=== PATIENT | male | born 1965 | race Caucasian/White ===

== ENCOUNTER 2016-04-07 18:02 | Inpatient (IN) | payer OTHER ==
[~2016-04-07] VITALS: Ht 172.7 cm; Wt 117.0 kg
[2016-04-07] MEDS ORDERED: SODIUM CHLORIDE 0.9% 1000ML 1,000 ML IV STA (20:14)
[2016-04-07] MEDS ORDERED: OPTIRAY 320 IV PRN (20:30)
[2016-04-07 20:54] LABS: BASO % 0.7 %; BASO ABS # 0.06 K/uL (0-0.2); COMPLETE YES; EOS % 1.7 %; HEMATOCRIT 46.1 % (42-52); IG% 0.3 %; LYMPH % 36.3 %; MEAN CELL VOLUME 87.3 fL (80-100); MEAN CORPUSCULAR HEMOGLOBIN 30.5 pg (25-34); MEAN CORPUSCULAR HGB CONC 34.9 g/dl (32-36); MEAN PLATELET VOLUME 10.8 fL (7.4-10.4); MONO % 9.9 %; NEUT % 51.1 %; PLATELET COUNT 216 K/uL (130-400); RED BLOOD COUNT 5.28 M/uL (4.7-6.1); WHITE BLOOD COUNT 9.09 K/uL (4.8-10.8)
[2016-04-07 21:12] LABS: CALCIUM 9.1 mg/dl (8.5-10.1); POTASSIUM 3.9 mmol/L (3.5-5.1)
[2016-04-07] MEDS ORDERED: ASPI81TA28 PO (21:37)
[2016-04-07] MEDS ORDERED: OMEP20.64 PO (21:37)
[2016-04-07] MEDS ORDERED: COEN100C7 PO (21:37)
[2016-04-07] MEDS ORDERED: LISI-729 PO (21:37)
[2016-04-07] MEDS ORDERED: CLC100X PO (21:37)
[2016-04-07] MEDS ORDERED: MULT-506 PO (21:37)
[2016-04-07] MEDS ORDERED: POLY335019 PO (21:37)
--- NOTE | 2016-04-07 21:45 | DIAGNOSTIC IMAGING REPORT ---
ABDOMEN AND PELVIS CT WITH IV CONTRAST CT DOSE: 1188.39 mGy.cm HISTORY: Pain abd pain ll. TECHNIQUE: Multiaxial CT images of the abdomen and pelvis were performed following the use of intravenous contrast. COMPARISON STUDY: None. FINDINGS: Lung bases are clear. Liver spleen and pancreas are unremarkable. Kidneys negative for hydronephrosis or calcification. Intra-abdominal bowel pattern is nonobstructive.] Evaluation of the pelvis demonstrates wall thickening associated with several reticular change of the proximal to mid sigmoid. This consistent with chronic proximal sigmoid diverticulosis. No well-defined evidence for acute diverticulitis present. No evidence for bowel obstructive change. Note is made of gallstones within the gallbladder lumen. IMPRESSION: 1. Chronic proximal to mid sigmoid diverticulosis. 2. No evidence for acute diverticulitis. 3. Gallstones. Electronically signed by: Ted Curtis M.D. 04/07/2016 9:43 PM Dictated Date/Time: 04/07/2016 9:40 PM
[2016-04-07] MEDS ORDERED: PANTOprazole INJ 80 MG in DEXTROSE 5% 100ML IV STA (22:20)
[2016-04-07] MEDS ORDERED: PANTOprazole INJ 40 MG in DEXTROSE 5% 100ML IV SCH (22:30)
[2016-04-07] MEDS ORDERED: DiphenhydrAMINE HCL 50 MG/ML VIAL IV PRN (23:00)
[2016-04-07] MEDS ORDERED: LORAZEPAM 2 MG/ML 1 ML VIAL IV PRN (23:00)
[2016-04-07] MEDS ORDERED: ZOLPIDEM TARTRATE 5 MG TAB PO PRN (23:00)
[2016-04-07] MEDS ORDERED: MoRPHine SULFATE 4 MG/ML 1 ML CARP\\VIAL IV PRN (23:00)
[2016-04-07] MEDS ORDERED: ONDANSETRON INJ 2 MG/ML 2 ML VIAL IV PRN (23:00)
[2016-04-07] MEDS ORDERED: PROMETHAZINE HCL INJ 12.5 MG in SODIUM CHLORIDE 0.9% 50ML 50 ML IV PRN (23:00)
[2016-04-07] MEDS ORDERED: MoRPHine SULFATE 2 MG/ML CARP IV PRN (23:00)
--- NOTE | 2016-04-07 23:00 | EMERGENCY ROOM VISIT NOTE ---
History Report prepared by Dayne: Sandra Fan Under the Supervision of: Dr. Ravi Coombs D.O. First contact with patient: 20:02 Chief Complaint: RECTAL BLEEDING Stated Complaint: DIVERTICULAR BLEEDING Nursing Triage Summary: Patient reports having diverticulitis around 2 years ago and has occasionally had bleeding in stools but "nothing like this before", Patient also reports "my belly pain is nothing like my divertic". History of Present Illness The patient is a 50 year old male who presents to the Emergency Room with complaints of intermittent rectal bleeding starting about 2 days ago. He has been passing dark red blood and blood clots. He also complains of diarrhea. He has had 2 bowel movements in the last 24 hours. He had right lower quadrant abdominal pain yesterday but denies any abdominal pain today. He reports a loss of appetite. Pt denies headache, change in vision, fevers, chest pain, shortness of breath, nausea, vomiting, abdominal pain, pain with urination, and melena. He takes baby aspirin every day. He does not take Motrin or Aleve on a daily basis. The patient denies history of gastritis or cholecystectomy. He does have a history of appendectomy. He has a history of colonoscopy occurring 3 years ago which showed diverticulosis but no polyps. Source of History: patient Onset: about 2 days ago Position: other (global) Quality: other (rectal bleeding) Timing: intermittent Associated Symptoms: + abdominal pain (resolved), + diarrhea, No SOB, No chest pain, No fevers, No nausea, No vomiting Review of Systems See HPI for pertinent positives & negatives. A total of 10 systems reviewed and were otherwise negative. Past Medical & Surgical Medical Problems: (1) Hematochezia Surgical Problems: (1) H/O colonoscopy (2) History of appendectomy Family History Patient reports no known family medical history. Social History Smoking Status: Never Smoker Marital Status: Occupation Status: employed Current/Historical Medications Scheduled Aspirin (Aspirin Ec), 81 MG PO DAILY Coenzyme Q10 (Ubidecarenone) (Coq10), 100 MG PO DAILY Docusate Sodium (Docusate Sodium), 100 MG PO DAILY Lisinopril (Prinivil), 5 MG PO DAILY Multivitamin (Multivitamin), 1 TAB PO DAILY Omeprazole Magnesium (Cvs Omeprazole Magnesium), 20.6 MG PO DAILY Polyethylene Glycol 3350 (Miralax), 17 GM PO DAILY Allergies Coded Allergies: No Known Allergies (Unverified , 04/07/16) Physical Exam Vital Signs Date Time Temp Pulse Resp B/P Pulse Ox O2 Delivery O2 Flow Rate FiO2 04/07/16 21:42 78 18 157/86 100 Room Air 04/07/16 20:45 80 18 134/90 97 Room Air 04/07/16 18:26 36.8 85 18 123/85 97 Room Air Physical Exam GENERAL: Sitting on edge of bed, alert, well appearing, well nourished, no distress, non-toxic EYE EXAM: normal conjunctiva OROPHARYNX: no exudate, no erythema, lips, buccal mucosa, and tongue normal and mucous membranes are moist NECK: supple, no nuchal rigidity, no adenopathy, non-tender LUNGS: Clear to auscultation. Normal chest wall mechanics HEART: no murmurs, S1 normal and S2 normal ABDOMEN: abdomen soft, non-tender, normo-active bowel sounds, no masses, no rebound or guarding. BACK: Back is symmetrical on inspection and there is no deformity, no midline tenderness, no CVA tenderness. SKIN: no rashes and no bruising UPPER EXTREMITIES: upper extremities are grossly normal. LOWER EXTREMITIES: No pitting edema. RECTAL: Dark/bright red blood in rectum, external hemorrhoids present but not bleeding. NEURO EXAM: Normal sensorium, cranial nerves II-XII grossly intact, normal speech, no gross weakness of arms, no gross weakness of legs. Medical Decision & Procedures ER Provider Diagnostic Interpretation: CT:Per my review, radiologist interpretation. ABDOMEN AND PELVIS CT WITH IV CONTRAST CT DOSE: 1188.39 mGy.cm HISTORY: Pain abd pain ll. TECHNIQUE: Multiaxial CT images of the abdomen and pelvis were performed following the use of intravenous contrast. COMPARISON STUDY: None. FINDINGS: Lung bases are clear. Liver spleen and pancreas are unremarkable. Kidneys negative for hydronephrosis or calcification. Intra-abdominal bowel pattern is nonobstructive.] Evaluation of the pelvis demonstrates wall thickening associated with several reticular change of the proximal to mid sigmoid. This consistent with chronic proximal sigmoid diverticulosis. No well-defined evidence for acute diverticulitis present. No evidence for bowel obstructive change. Note is made of gallstones within the gallbladder lumen. IMPRESSION: 1. Chronic proximal to mid sigmoid diverticulosis. 2. No evidence for acute diverticulitis. 3. Gallstones. Electronically signed by: Ted Curtis M.D. 04/07/2016 9:43 PM Dictated Date/Time: 04/07/2016 9:40 PM Laboratory Results 04/07/16 20:40 Red Blood Count 5.28, Mean Corpuscular Volume 87.3, Mean Corpuscular Hemoglobin 30.5, Mean Corpuscular Hemoglobin Concent 34.9, Mean Platelet Volume 10.8, Neutrophils (%) (Auto) 51.1, Lymphocytes (%) (Auto) 36.3, Monocytes (%) (Auto) 9.9, Eosinophils (%) (Auto) 1.7, Basophils (%) (Auto) 0.7, Neutrophils # (Auto) 4.65, Lymphocytes # (Auto) 3.30, Monocytes # (Auto) 0.90, Eosinophils # (Auto) 0.15, Basophils # (Auto) 0.06 04/07/16 20:40 Test 04/07/16 20:40 White Blood Count 9.09 K/uL (4.8-10.8) Red Blood Count 5.28 M/uL (4.7-6.1) Hemoglobin 16.1 g/dL (14.0-18.0) Hematocrit 46.1 % (42-52) Mean Corpuscular Volume 87.3 fL (80-100) Mean Corpuscular Hemoglobin 30.5 pg (25-34) Mean Corpuscular Hemoglobin Concent 34.9 g/dl (32-36) Platelet Count 216 K/uL (130-400) Mean Platelet Volume 10.8 fL (7.4-10.4) Neutrophils (%) (Auto) 51.1 % Lymphocytes (%) (Auto) 36.3 % Monocytes (%) (Auto) 9.9 % Eosinophils (%) (Auto) 1.7 % Basophils (%) (Auto) 0.7 % Neutrophils # (Auto) 4.65 K/uL (1.4-6.5) Lymphocytes # (Auto) 3.30 K/uL (1.2-3.4) Monocytes # (Auto) 0.90 K/uL (0.11-0.59) Eosinophils # (Auto) 0.15 K/uL (0-0.5) Basophils # (Auto) 0.06 K/uL (0-0.2) RDW Standard Deviation 42.5 fL (36.4-46.3) RDW Coefficient of Variation 13.4 % (11.5-14.5) Immature Granulocyte % (Auto) 0.3 % Immature Granulocyte # (Auto) 0.03 K/uL (0.00-0.02) Anion Gap 11.0 mmol/L (3-11) Est Creatinine Clear Calc Drug Dose 107.3 ml/min Estimated GFR () 99.8 Estimated GFR (Non- 86.2 BUN/Creatinine Ratio 9.0 (10-20) Calcium Level 9.1 mg/dl (8.5-10.1) Total Bilirubin 0.8 mg/dl (0.2-1) Direct Bilirubin 0.2 mg/dl (0-0.2) Aspartate Amino Transf (AST/SGOT) 19 U/L (15-37) Alanine Aminotransferase (ALT/SGPT) 33 U/L (12-78) Alkaline Phosphatase 76 U/L (45-117) Total Protein 8.1 gm/dl (6.4-8.2) Albumin 4.0 gm/dl (3.4-5.0) Lipase 106 U/L (73-393) Laboratory results per my review. Medications Administered Medications (Trade) Dose Ordered Sig/Celi Route Start Time Stop Time Status Last Admin Dose Admin Sodium Chloride (Nss 1000ml) 1,000 ml @ 999 mls/hr Q1H1M STAT IV 04/07/16 20:14 04/07/16 21:14 DC 04/07/16 21:03 999 MLS/HR ED Course ED COURSE: Vital signs were reviewed and showed normal. The patients medical record was reviewed The above diagnostic studies were performed and reviewed. ED treatments and interventions as stated above. 2001: The patient was evaluated in room C12B. A complete history and physical examination was performed. 2013: Sodium Chloride 1000 ml @ 999 mls/hr IV 2201: Upon reevaluation, the patient is resting comfortably.I discussed my findings with the patient and he understands and agrees with the treatment plan. Based on the patients age, coexisting illnesses, exam and lab findings the decision to treat as an inpatient was made. The patient remained stable while under my care. The patient will be evaluated for further management. 2215: Pantoprazole Sodium 1 ea IV 2220: I discussed the patient's case with Dr. Arias, from [facility]. Medical Decision Differential diagnosis: Etiologies such as diverticulosis, AVM, coagulopathy, colitis, inflammatory bowel disease, malignancy, Candace-Buchanan tear, esophagitis, peptic ulcer disease , variceal bleed, gastritis, epistaxis, fissure, hemorrhoids, as well as others were entertained. Patient is a 50-year-old male who presents the ER for dark blood clots which is passing per rectum for the past 2 days. He takes no blood thinners with exception of aspirin. He has no abdominal pain. No lightheadedness or dizziness. Colonoscopy was 2 years ago. While in the started having bright red blood per rectum. Hemoglobin stable. Vitals are stable. Rectal showed an external hemorrhoid but no active bleeding from this. Patient and family were updated at bedside. He was given a Protonix drip and bolus as it was initially dark blood clots which I favored was upper GI in nature but with the bright red blood I favor this is likely lower as his vitals remained stable. He was admitted to internal medicine for a further workup. Consults Time Called: 2204 Consulting Physician: Dr. Arias, from [facility] Returned Call: 2220 I discussed the patient's case with Dr. Arias, from [facility]. Impression Primary Impression: GI bleed Scribe Attestation The scribe's documentation has been prepared under my direction and personally reviewed by me in its entirety. I confirm that the note above accurately reflects all work, treatment, procedures, and medical decision making performed by me. Departure Information Dispostion Being Evaluated By Hospitalist Referrals Krystal Cabrera D.O. (PCP) Patient Instructions My [facility] Problem Qualifiers Primary Impression: GI bleed GI bleed type/associated pathology: unspecified gastrointestinal hemorrhage type Qualified Codes: K92.2 - Gastrointestinal hemorrhage, unspecified
[2016-04-07 23:11] LABS: HEMATOCRIT 42.9 % (42-52)
--- NOTE | 2016-04-08 02:30 | History and Physical ---
History & Physical Date & Time of Service: Apr 08, 2016 at 02:19 Chief Complaint: Diverticular Bleeding Primary Care Physician: Krystal Cabrera D.O. 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 However, this time, the bleeding was initially that of large clots, then followed by bright red blood. His only pain is that of rectal area pain. He did a few days ago have cabbage and coleslaw, both foods and is not supposed to have, and attributes the more aggressive bleeding to this food intake. He takes a baby aspirin daily due to history of a previous [place] and coronary artery stent placed in 2007. He's had no chest pain or shortness of breath with the current blood loss. Past Medical/Surgical History Surgical Problems: (1) H/O colonoscopy Status: Resolved (2) History of appendectomy Status: Resolved Family History Patient reports no known family medical history. Social History Smoking Status: Never Smoker Marital Status: Occupational Status: employed Multi-Drug Resistant Organisms History of MDRO: No Allergies Coded Allergies: No Known Allergies (Unverified , 04/07/16) Home Medications Scheduled Aspirin (Aspirin Ec), 81 MG PO DAILY Coenzyme Q10 (Ubidecarenone) (Coq10), 100 MG PO DAILY Docusate Sodium (Docusate Sodium), 100 MG PO DAILY Lisinopril (Prinivil), 5 MG PO DAILY Multivitamin (Multivitamin), 1 TAB PO DAILY Omeprazole Magnesium (Cvs Omeprazole Magnesium), 20.6 MG PO DAILY Polyethylene Glycol 3350 (Miralax), 17 GM PO DAILY Review of Systems The patient denies chest pain, palpitations, shortness of breath, cough, lower extremity swelling, vision change, hearing change, sore throat, fevers, chills, sweats, weight change, fatigue, nausea, vomiting, abdominal pain, pelvic pain, blood in urine, dysuria, urinary frequency or urgency, lightheadedness, dizziness, headache, memory loss, rash, imbalance, focal or generalized weakness , numbness or tingling in arms or legs, arthralgias or myalgias, back or neck pain, night sweats, or allergy symptoms. The review of systems is otherwise negative other than for that already noted above, and at least 10 systems have been reviewed. Physical Exam Vital Signs Date Time Temp Pulse Resp B/P Pulse Ox O2 Delivery O2 Flow Rate FiO2 04/08/16 00:01 80 18 133/72 99 04/07/16 23:11 67 18 127/84 99 Room Air 04/07/16 21:42 78 18 157/86 100 Room Air 04/07/16 20:45 80 18 134/90 97 Room Air 04/07/16 18:26 36.8 85 18 123/85 97 Room Air The patient is awake, well-developed and adequately nourished, alert and oriented 3, normocephalic and atraumatic, lying in bed and in no acute distress. HEENT--PERRL, EOMI, mucous membranes and oropharynx dry. Neck--supple, no JVD or bruits, thyroid normal, trachea midline, no adenopathy. Heart--normal S1 and S2, no extra beats, no murmurs, rubs or gallops. Lungs--clear bilaterally with good air movement, no respiratory distress, no accessory muscle use. Abdomen--normal bowel sounds and soft, nontender and nondistended, no hernias or masses, no organomegaly. Extremities--no cyanosis, clubbing or edema. There are good distal pulses b/l. Dermatologic--normal skin turgor, normal color, warm and dry, no abnormal lymph nodes, no rash. Neurologic--cranial nerves II through XII grossly intact, motor and sensory examination normal. Rheumatologic--normal range of motion, nontender, muscles and joints. Rectal exam--per ED with gross red blood. Psychiatric--normal affect. Diagnostics Laboratory Results Results Past 24 Hours Test 04/07/16 20:40 04/07/16 23:00 Range/Units White Blood Count 9.09 4.8-10.8 K/uL Red Blood Count 5.28 4.7-6.1 M/uL Hemoglobin 16.1 14.6 14.0-18.0 g/dL Hematocrit 46.1 42.9 42-52 % Mean Corpuscular Volume 87.3 80-100 fL Mean Corpuscular Hemoglobin 30.5 25-34 pg Mean Corpuscular Hemoglobin Concent 34.9 32-36 g/dl Platelet Count 216 130-400 K/uL Mean Platelet Volume 10.8 7.4-10.4 fL Neutrophils (%) (Auto) 51.1 % Lymphocytes (%) (Auto) 36.3 % Monocytes (%) (Auto) 9.9 % Eosinophils (%) (Auto) 1.7 % Basophils (%) (Auto) 0.7 % Neutrophils # (Auto) 4.65 1.4-6.5 K/uL Lymphocytes # (Auto) 3.30 1.2-3.4 K/uL Monocytes # (Auto) 0.90 0.11-0.59 K/uL Eosinophils # (Auto) 0.15 0-0.5 K/uL Basophils # (Auto) 0.06 0-0.2 K/uL RDW Standard Deviation 42.5 36.4-46.3 fL RDW Coefficient of Variation 13.4 11.5-14.5 % Immature Granulocyte % (Auto) 0.3 % Immature Granulocyte # (Auto) 0.03 0.00-0.02 K/uL Sodium Level 140 136-145 mmol/L Potassium Level 3.9 3.5-5.1 mmol/L Chloride Level 104 98-107 mmol/L Carbon Dioxide Level 25 21-32 mmol/L Anion Gap 11.0 3-11 mmol/L Blood Urea Nitrogen 9 7-18 mg/dl Creatinine 1.00 0.60-1.40 mg/dl Est Creatinine Clear Calc Drug Dose 107.3 ml/min Estimated GFR () 99.8 Estimated GFR (Non- 86.2 BUN/Creatinine Ratio 9.0 10-20 Random Glucose 91 70-99 mg/dl Calcium Level 9.1 8.5-10.1 mg/dl Total Bilirubin 0.8 0.2-1 mg/dl Direct Bilirubin 0.2 0-0.2 mg/dl Aspartate Amino Transf (AST/SGOT) 19 15-37 U/L Alanine Aminotransferase (ALT/SGPT) 33 12-78 U/L Alkaline Phosphatase 76 45-117 U/L Total Protein 8.1 6.4-8.2 gm/dl Albumin 4.0 3.4-5.0 gm/dl Lipase 106 73-393 U/L Diagnostic Radiology Patient Name: FIONA ALVARENGA Unit Number: [id number] Dictated: 04/07/162139 Transcribed: 04/07/162139 MS Printed Date/Time: [~ rep prt dt]/[~ rep prt tm] [~ rep ct labl] - [~ rep ct ivnm] [facility] [place] [place] [address] Dictated: 04/07/162139 Transcribed: 04/07/162139 MS Printed Date/Time: [~ rep prt dt]/[~ rep prt tm] [~ rep ct labl] - [~ rep ct ivnm] [~ rep ct add3]] ABDOMEN AND PELVIS CT WITH IV CONTRAST CT DOSE: 1188.39 mGy.cm HISTORY: Pain abd pain ll. TECHNIQUE: Multiaxial CT images of the abdomen and pelvis were performed following the use of intravenous contrast. COMPARISON STUDY: None. FINDINGS: Lung bases are clear. Liver spleen and pancreas are unremarkable. Kidneys negative for hydronephrosis or calcification. Intra-abdominal bowel pattern is nonobstructive.] Evaluation of the pelvis demonstrates wall thickening associated with several reticular change of the proximal to mid sigmoid. This consistent with chronic proximal sigmoid diverticulosis. No well-defined evidence for acute diverticulitis present. No evidence for bowel obstructive change. Note is made of gallstones within the gallbladder lumen. IMPRESSION: 1. Chronic proximal to mid sigmoid diverticulosis. 2. No evidence for acute diverticulitis. 3. Gallstones. Electronically signed by: Ted Curtis M.D. 04/07/2016 9:43 PM Dictated Date/Time: 04/07/2016 9:40 PM The status of this report is Signed. Draft = Not yet reviewed or approved by Radiologist. Signed = Reviewed and approved by Radiologist. <AttendingPhy></AttendingPhy> <FamilyPhy>Eliz Cabrerang D.O.</FamilyPhy> < PrimaryPhy>Wirtsudeep, Krystal D.O.</PrimaryPhy> <UnitNumber>[id number]</UnitNumber> <VisitNumber>[id number]</VisitNumber> <PatientName>FIONA ALVARENGA</ PatientName> <DateOfBirth>1965</DateOfBirth> <Location>[facility]</Location> < ServiceDate>04/07/16</ServiceDate> <MNE>ESINDI</MNE> <OrderingPhy>Ravi Coombs DO</OrderingPhy> <OrderingPhyMNE>f rep ord dr blount</OrderingPhyMNE> < DictatingPhyMNE>f rep dict dr blount</DictatingPhyMNE> <CCListMNE>f rep ct mne</ CCListMNE> <AdmittingPhyMNE>f pt admit dr blount</AdmittingPhyMNE> <AttendingPhyMNE >f pt attend dr blount</AttendingPhyMNE> <ConsultingPhyMNE>f pt consult dr blount</ConsultingPhyMNE> <FamilyPhyMNE>f pt fam dr blount</FamilyPhyMNE> <OtherPhyMNE>f pt other dr blount</OtherPhyMNE> < PrimaryPhyMNE>f pt prim care dr blount</PrimaryPhyMNE> <ReferringPhyMNE>f pt referring dr blount</ReferringPhyMNE> EKG EKG is ordered and pending at this time. Impression Assessment and Plan Hematochezia--the patient will be admitted to the medical floor for frequent H/H 's at 6 hours intervals. He'll be made nothing by mouth, and will have a consult with gastroenterology in the a.m. He reportedly had a colonoscopy about 3 years ago, from a physician in [place] who is since retired, and was told he had diverticulosis and hemorrhoids. He'll be placed on NSS with KCl 20 mEq at 100 mils per hour. He has been started on a Protonix bolus and then drip , and this will be continued during admission. Hold aspirin 81 mg by mouth daily. Hypertension--hold lisinopril 5 mg by mouth daily. Level of Care Med/Surg Advanced Directives Existing Advance Directive: No Existing Living Will: No Existing Power of School Business Manager: No Resuscitation Status FULL RESUSCITATION VTE Prophylaxis VTE Risk Assessment Done? Y/N: Yes Risk Level: Low Given or contraindicated: SCD's Social Service Consult None Apply
[2016-04-08] MEDS ORDERED: NSS + 20MEQ KCL 1000ML 1,000 ML IV SCH (02:45)
[2016-04-08] MEDS ORDERED: LORAZEPAM INJ 0.5 MG in SYRINGE 0.75 ML IV PRN (02:45)
[2016-04-08] MEDS: PANTOprazole INJ 40 MG in DEXTROSE 5% 100ML IV SCH ×2 (03:36→07:57)
[2016-04-08 04:07] VITALS: BP 126/87; PULSE 71; TEMP 36.8; O2SAT 98; Ht 172.7 cm; Wt 117.0 kg
[2016-04-08 05:08] LABS: BASO % 0.7 %; BASO ABS # 0.06 K/uL (0-0.2); COMPLETE YES; EOS % 2.9 %; HEMATOCRIT 43.4 % (42-52); IG% 0.2 %; LYMPH % 43.8 %; LYMPH ABS # 3.81 K/uL (1.2-3.4); MEAN CELL VOLUME 89.3 fL (80-100); MEAN CORPUSCULAR HEMOGLOBIN 30.5 pg (25-34); MEAN CORPUSCULAR HGB CONC 34.1 g/dl (32-36); MEAN PLATELET VOLUME 11.3 fL (7.4-10.4); MONO % 8.7 %; NEUT % 43.7 %; PLATELET COUNT 201 K/uL (130-400); RED BLOOD COUNT 4.86 M/uL (4.7-6.1)
[2016-04-08 05:28] LABS: BUN/CREATININE RATIO 7.5 (10-20); CALCIUM 8.5 mg/dl (8.5-10.1); CREATININE 0.98 mg/dl (0.60-1.40); MAGNESIUM 1.8 mg/dl (1.8-2.4); POTASSIUM 3.7 mmol/L (3.5-5.1)
[2016-04-08 07:30] VITALS: BP 125/71; PULSE 89; TEMP 36.6; O2SAT 98
--- NOTE | 2016-04-08 10:00 | Gastrointestinal Consultation ---
Gastrointestinal Consultation Date of Consultation: Apr 08, 2016 Attending Physician: Dr. Arias Consulting Physician: Shalini Diaz PA-C Reason for Consultation: Hematochezia History of Present Illness Patient is a 50 year old male with a past medical history of diverticulosis, hyperlipidemia, & hemorrhoids who presented to the ER with complaints of hematochezia. The patient reports he had experienced 2 days of bright red blood per rectum. He reports he noticed some clotting which concerned him and prompted him to seek evaluation. He reports that he had a colonoscopy 2-3 years ago for screening purposes. This was performed in [place]. He reports he was told he had diverticulosis & hemorrhoids. He reports he was instructed to take Metamucil daily. 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 He reports he eats a poor diet due to his occupation. He reports he gets very little fiber. He denies further bleeding since arrival to the hospital. He denies other associated symptoms including abdominal pain, constipation, diarrhea, reflux, heartburn, nausea, or vomiting. He reports he takes a baby aspirin daily. He denies any use of NSAIDs. He reports a family history of diverticulosis. He denies family history of GI malignancy or IBD. He would like to return home and follow-up with his primary care provider if there is no emergent issue at present. H/H 14.8/43.4 at present. BUN/Cr unremarkable. BP 125/71. CT unremarkable for acute diverticulitis. He has no further complaints. Past Medical/Surgical History Medical Problems: (1) GI bleed Status: Acute Past Medical History: Diverticulosis, hyperlipidemia, hemorrhoids Past Surgical History: Colonoscopy Family History Patient reports no known family medical history. Social History Smoking Status: Current Some Day Smoker Marital Status: Occupation Status: employed Allergies Coded Allergies: No Known Allergies (Unverified , 04/07/16) Current Medications Home Meds and Scripts Medications Dose Route/Sig Max Daily Dose Days Date Category Miralax (Polyethylene Glycol 3350) 1 17 Gm PO DAILY 04/07/16 Reported Multivitamin (Multivitamins) Tab 1 Tab PO DAILY 04/07/16 Reported [facility] Omeprazole Magnesium (Omeprazole Magnesium) 20.6 Mg Cap 20.6 Mg PO DAILY 04/07/16 Reported Coq10 (Coenzyme Q10 (Ubidecarenone)) 100 Mg Cap 100 Mg PO DAILY 04/07/16 Reported Aspirin Ec (Aspirin) 81 Mg Tab 81 Mg PO DAILY 04/07/16 Reported Docusate Sodium 100 Mg Cap 100 Mg PO DAILY 04/07/16 Reported Prinivil (Lisinopril) 5 Mg Tab 5 Mg PO DAILY 04/07/16 Reported Review of Systems Constitutional: No chills, No fever Eyes: No problem reported Respiratory: No cough Abdomen: + GI bleeding (resolved), No constipation, No diarrhea, No nausea, No pain, No vomiting Musculoskeletal: No joint pain Neuro: No problem reported Heme: No problem reported Endo: No problem reported Skin: No problem reported Physical Exam Date Time Temp Pulse Resp B/P Pulse Ox O2 Delivery O2 Flow Rate FiO2 04/08/16 07:30 36.6 89 22 125/71 98 Room Air 04/08/16 04:07 36.8 71 20 126/87 98 Room Air 04/08/16 00:01 80 18 133/72 99 04/07/16 23:11 67 18 127/84 99 Room Air 04/07/16 21:42 78 18 157/86 100 Room Air 04/07/16 20:45 80 18 134/90 97 Room Air 04/07/16 18:26 36.8 85 18 123/85 97 Room Air General Appearance: WD/WN, no apparent distress Eyes: normal inspection, PERRL ENT: hearing grossly normal Respiratory/Chest: lungs clear, normal breath sounds Cardiovascular: regular rate, rhythm Abdomen: normal bowel sounds, non tender, soft Extremities: non-tender Neurologic/Psych: alert, oriented x 3 Skin: normal color Laboratory Results Last 24 Hours Test 04/07/16 20:40 04/07/16 23:00 04/08/16 04:53 White Blood Count 9.09 K/uL 8.70 K/uL Red Blood Count 5.28 M/uL 4.86 M/uL Hemoglobin 16.1 g/dL 14.6 g/dL 14.8 g/dL Hematocrit 46.1 % 42.9 % 43.4 % Mean Corpuscular Volume 87.3 fL 89.3 fL Mean Corpuscular Hemoglobin 30.5 pg 30.5 pg Mean Corpuscular Hemoglobin Concent 34.9 g/dl 34.1 g/dl Platelet Count 216 K/uL 201 K/uL Mean Platelet Volume 10.8 fL 11.3 fL Neutrophils (%) (Auto) 51.1 % 43.7 % Lymphocytes (%) (Auto) 36.3 % 43.8 % Monocytes (%) (Auto) 9.9 % 8.7 % Eosinophils (%) (Auto) 1.7 % 2.9 % Basophils (%) (Auto) 0.7 % 0.7 % Neutrophils # (Auto) 4.65 K/uL 3.80 K/uL Lymphocytes # (Auto) 3.30 K/uL 3.81 K/uL Monocytes # (Auto) 0.90 K/uL 0.76 K/uL Eosinophils # (Auto) 0.15 K/uL 0.25 K/uL Basophils # (Auto) 0.06 K/uL 0.06 K/uL RDW Standard Deviation 42.5 fL 43.9 fL RDW Coefficient of Variation 13.4 % 13.4 % Immature Granulocyte % (Auto) 0.3 % 0.2 % Immature Granulocyte # (Auto) 0.03 K/uL 0.02 K/uL Sodium Level 140 mmol/L 141 mmol/L Potassium Level 3.9 mmol/L 3.7 mmol/L Chloride Level 104 mmol/L 105 mmol/L Carbon Dioxide Level 25 mmol/L 27 mmol/L Anion Gap 11.0 mmol/L 9.0 mmol/L Blood Urea Nitrogen 9 mg/dl 7 mg/dl Creatinine 1.00 mg/dl 0.98 mg/dl Est Creatinine Clear Calc Drug Dose 107.3 ml/min 109.5 ml/min Estimated GFR () 99.8 102.3 Estimated GFR (Non- 86.2 88.3 BUN/Creatinine Ratio 9.0 7.5 Random Glucose 91 mg/dl 86 mg/dl Calcium Level 9.1 mg/dl 8.5 mg/dl Total Bilirubin 0.8 mg/dl Direct Bilirubin 0.2 mg/dl Aspartate Amino Transf (AST/SGOT) 19 U/L Alanine Aminotransferase (ALT/SGPT) 33 U/L Alkaline Phosphatase 76 U/L Total Protein 8.1 gm/dl Albumin 4.0 gm/dl Lipase 106 U/L Magnesium Level 1.8 mg/dl Impression Patient is a 50 year old male who presented with painless hematochezia. H/H 14.8 /43.4. Patient has had no further bleeding since admission. Differential includes diverticular bleeding vs hemorrhoidal bleeding vs malignancy vs other. Plan 1) Given his hemodynamic stability and lack of further bleeding, patient can have further outpatient evaluation and testing for his symptoms. He reports he wishes to be discharged and returned to his PCP for further care. He reports that he has someone local that he plans to schedule a colonoscopy with, but did make patient aware he is welcome to follow-up in our office to discuss further interventions and colonoscopy. 2) Discussed role of Metamucil in diverticulosis as well as hemorrhoids. 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 Recommend 64 oz water daily and increasing dietary fiber intake. 3) Supportive care and discharge planning per primary team. Thank you for allowing us to participate in the care of this patient. If you should have any further questions or concerns, do not hesitate to contact us. Agree with ROXANA Wylie as above Abd: Soft, NT, ND, +BS He states he will followup with our office for outpatient colonoscopy
[2016-04-08] MEDS ORDERED: PANTOprazole INJ 40 MG in SYRINGE 0 ML IV SCH (11:00)
[2016-04-08 11:49] LABS: HEMATOCRIT 41.4 % (42-52)
--- NOTE | 2016-04-08 12:03 | Discharge Instructions ---
Discharge Instructions Admission Reason for Admission: Hematochezia Discharge Discharge Diagnosis / Problem: Hematochezia Discharge Goals Goal(s): Decrease discomfort, Improve function, Increase independence, Improve disease control, Diagnostic testing, Therapeutic intervention Activity Recommendations Activity Limitations: resume your previous activity Exercise/Sports Limitations: none Shower/Bathe: no limitations . Instructions / Follow-Up Instructions / Follow-Up Patient to be discharged home Would recommend high fiber diet and metamucil over the counter in addition to increasing water intake to about 64 ounces a day If worsening bleeding, abdominal pain please report to ER Current Hospital Diet Patient's current hospital diet: Discharge Diet Recommended Diet: Regular Diet (high fiber diet) Pending Studies Studies pending at discharge: no Medical Emergencies . Who to Call and When: Medical Emergencies: If at any time you feel your situation is an emergency, please call 911 immediately. . Non-Emergent Contact Non-Emergency issues call your: Primary Care Provider Call Non-Emergent contact if: you have a fever, you have any medication questions . . "Provider Documentation" section prepared by Jeremiah Trinidad. VTE Core Measure Inpt VTE Proph given/why not?: SCD's
[2016-04-08 13:17] VITALS: BP 125/71; PULSE 89; TEMP 36.6; O2SAT 98
--- NOTE | 2016-04-08 14:38 | Discharge Summary ---
Discharge Summary Date of Service Apr 08, 2016. Discharge Summary Admission Date: Apr 07, 2016 at 22:46 Discharge Date: Apr 08, 2016 Discharge Disposition: Home Principal Diagnosis: Hematochezia Consultations: GI Medication Reconciliation Continued Medications: Aspirin (Aspirin Ec) 81 Mg Tab 81 MG PO DAILY Coenzyme Q10 (Ubidecarenone) (Coq10) 100 Mg Cap 100 MG PO DAILY Docusate Sodium (Docusate Sodium) 100 Mg Cap 100 MG PO DAILY Lisinopril (Prinivil) 5 Mg Tab 5 MG PO DAILY, TAB Multivitamin (Multivitamin) Tab 1 TAB PO DAILY, TAB Omeprazole Magnesium ([facility]vs Omeprazole Magnesium) 20.6 Mg Cap 20.6 MG PO DAILY Polyethylene Glycol 3350 (Miralax) 1 Pow Pow 17 GM PO DAILY, #255 GM Discharge Exam Review of Systems: Constitutional: No chills, No fever Respiratory: No cough, No shortness of breath, No sputum, No wheezing Cardiovascular: No chest pain, No orthopnea Abdomen: No diarrhea, No nausea, No pain, No vomiting Musculoskeletal: No joint pain, No muscle pain Genitourinary - Male: No dysuria, No hematuria Physical Exam: General Appearance: WD/WN, no apparent distress Neck: supple, no adenopathy Cardiovascular: regular rate, rhythm, no edema, no gallop Abdomen / GI: non tender, soft Neurologic/Psychiatric: alert, oriented x 3 Hospital Course Hematochezia--Patient admitted to the medical floor for frequent H/H's at 6 hours intervals. Was kept NPO at that time. VSS and Hg stabilized in the 14s, no further blood in stools noted. He reportedly had a colonoscopy about 3 years ago, from a physician in [place] who is since retired, and was told he had diverticulosis and hemorrhoids. He was been started on a Protonix bolus and then drip, GI consulted and recommended no further intervention at this time but to be discharged with recommendation of metamucil, and 64 ounces of water daily as well as following up with known GI provider. Hypertension--hold lisinopril 5 mg by mouth daily. Total Time Spent: Greater than 30 minutes This includes examination of the patient, discharge planning, medication reconciliation, and communication with other providers. Discharge Instructions Please refer to the electronic Patient Visit Report (Discharge Instructions) for additional information. Additional Copies To Krystal Cabrera D.O.
== END 2016-04-08 13:50 | disposition home or self-care (01) | DRG 379 ==
LOC: ENRESERVTM → ENRESERVDT → C.EDB 18:04 → C.MS4W 22:46
PROVIDERS: ADMIT Hospitalist; ATTEND Hospitalist
DX: K92.1 Melena (principal); I10 Essential (primary) hypertension; E78.5 Hyperlipidemia, unspecified; F17.210 Nicotine dependence, cigarettes, uncomplicated; I25.2 Old myocardial infarction; Z87.19 Personal history of other diseases of the digestive system; Z79.82 Long term (current) use of aspirin; Z79.899 Other long term (current) drug therapy